=== PATIENT | female | born 1950 | race Caucasian/White ===

== ENCOUNTER 2020-07-27 11:58 | Inpatient (IN) | payer OTHER, SELFPAY ==
[~2020-07-27] VITALS: Ht 165.1 cm; Wt 74.8 kg
[2020-07-27 12:00] VITALS: BP_SYST 113
--- NOTE | 2020-07-27 12:00 | NUR ---
Placed in room 1 . Placed on cardiac catheterization technologist, blood pressure machine and pulse oximeter. To gown for exam. Side rails up.
--- NOTE | 2020-07-27 12:05 | NUR ---
Pt bib EMS from home with report of seizures. Per family pt has history of a brain tumor. V/S stable, pt is afebrile. Currently resting in bed, will continue to monitor.
--- NOTE | 2020-07-27 12:10 | NUR ---
ER Dr. Gardner at bedside examining patient.
--- NOTE | 2020-07-27 12:15 | NUR ---
# 16 FR Jacobson catheter with use of sterile technique. Immediate return of 50 cc pale yellow urine noted. Bedside drainage bag placed below level of bladder. Urine sample collected and sent to lab. Pt tolerated procedure well.
--- NOTE | 2020-07-27 12:20 | NUR ---
Nasal swab obtained to r/o Covid, sample sent to lab, pt tolerated well.
[2020-07-27] MEDS ORDERED: METO25TA6 PO (12:24)
[2020-07-27] MEDS ORDERED: TEMA15CA PO (12:24)
[2020-07-27] MEDS ORDERED: LIP20 PO (12:24)
[2020-07-27] MEDS ORDERED: TEMO5CAP PO (12:24)
[2020-07-27] MEDS ORDERED: DEC1 PO (12:24)
--- NOTE | 2020-07-27 12:25 | NUR ---
Med rec and belongings list completed
--- NOTE | 2020-07-27 12:27 | NUR ---
Patient transported to radiology via gurney, accompanied by staff.
[2020-07-27 12:36] LABS: BASOPHILS % (AUTO) 0.5 % (0.0-2.0); EOSINOPHILS % (AUTO) 0.3 % (0.0-4.0); HEMATOCRIT 36.3 % (36-48); HEMOGLOBIN 12.7 g/dL (12.0-16.0); LYMPHOCYTES # (AUTO) 0.7 K/uL (1.0-5.5); MEAN CORPUSCULAR HEMOGLOBIN 35 pg (27-31); MEAN CORPUSCULAR HGB CONC 35 % (32-36); MEAN CORPUSCULAR VOLUME 100 fL (79.0-98.0); MONOCYTES # (AUTO) 0.6 K/uL (0.0-1.0); NEUTROPHILS # (AUTO) 6.6 K/uL (1.8-7.7); NEUTROPHILS % (AUTO) 82.2 % (40.0-70.0); PLATELET COUNT (AUTO) 144 K/uL (130-430); RED BLOOD CELL COUNT(AUTO) 3.63 MIL/uL (4.2-6.2); RED CELL DISTRIBUTION WIDTH 13.5 % (9.0-15.0); WHITE BLOOD COUNT (AUTO) 8.1 K/uL (4.8-10.8)
[2020-07-27 12:44] LABS: BILIRUBIN,URINE NEGATIVE (NEGATIVE); CLARITY/URINE CLEAR (CLEAR); COLOR,URINE YELLOW (YELLOW); GLUCOSE,URINE NEGATIVE (NEGATIVE); KETONES,URINE NEGATIVE (NEGATIVE); LEUKOCYTE ESTERASE ,URINE TRACE (NEGATIVE); NITRITE, URINE NEGATIVE (NEGATIVE); PH,URINE 6.5 (5.0-8.0); PROTEIN URINE NEGATIVE (NEGATIVE); UROBILINOGEN,URINE 0.2 (0.2-1.0)
[2020-07-27 12:49] LABS: ANION GAP 10 (5-15); CALCIUM 8.7 mg/dL (8.4-11.0); CHLORIDE 104 mmol/L (98-107); CREATININE 0.75 mg/dL (0.55-1.30); GLUCOSE 147 mg/dL (70-99); SODIUM SERUM 144 mmol/L (136-145); UREA NITROGEN, BLOOD 15 mg/dL (8-21)
[2020-07-27 12:50] LABS: BLOOD, URINE TRACE (NEGATIVE)
[2020-07-27 12:55] LABS: ALANINE AMINOTRANSFERASE 27 U/L (12-78); ALBUMIN 3.2 g/dL (3.4-4.8); ALCOHOL, BLOOD < 3 mg/dL (<10); ASPARTATE AMINOTRANSFERASE 16 U/L (10-37); PROTHROMBIN TIME 10.4 SECS (9.5-12.5); TOTAL BILIRUBIN 0.9 mg/dL (0.0-1.0)
[2020-07-27 12:56] LABS: ACETAMINOPHEN < 1 ug/mL (1-30); POTASSIUM 1.9 mmol/L (3.5-5.1)
[2020-07-27 12:57] LABS: BACTERIA,URINE FEW /HPF (None Seen)
[2020-07-27] MEDS ORDERED: POTASSIUM CHLORIDE 40 MEQ in NS 250 ML IV ONE (13:00)
[2020-07-27] MEDS ORDERED: MAGNESIUM SULFATE 50 ML IV ONE (13:00)
[2020-07-27 13:10] LABS: BARBITURATE, URINE NEGATIVE (NEG <=200); BENZODIAZEPINE, URINE POSITIVE (NEG <=150); CANNABINOID, URINE NEGATIVE (NEG <=50); COCAINE, URINE NEGATIVE (NEG <=150); METHAMPHETAMINES SCREEN,URINE NEGATIVE (NEG <=500); URINE AMPHETAMINE NEGATIVE (NEG <=500); URINE METHADONE NEGATIVE (NEG <=200)
[2020-07-27 13:11] LABS: OPIATE, URINE NEGATIVE (NEG <=100); PHENCYCLIDINE SCREEN,URINE NEGATIVE (NEG <=25); UR TRICYCLIC ANTIDEPRESSANTS NEGATIVE (NEG <=300); URINE OXYCODONE SCREEN NEGATIVE (NEG <=100); URINE PROPOXYPHENE SCREEN NEGATIVE (NEG <=300)
[2020-07-27 13:12] LABS: URINE AMORPHOUS URATE 1+ /HPF (None Seen)
[2020-07-27] MEDS ORDERED: KCL 20 mEq in 100 mL (PREMIX) 0 ML IV ONE (13:22)
--- NOTE | 2020-07-27 13:22 | NUR ---
k-rider and Mag rider currently infusing per MD order.
--- NOTE | 2020-07-27 13:40 | NUR ---
Spoke with Breanna ( patient's daughter) who states patient never had seizures before, pt had a device placed 2 days ago, (optune for treatment of brain CA).
--- NOTE | 2020-07-27 13:44 | NUR ---
Lab at bedside for Potassium re-draw
[2020-07-27] MEDS ORDERED: levETIRAcetam 1,000 MG in NS 100 ML IV ONE (14:15)
--- NOTE | 2020-07-27 14:44 | NUR ---
Dr. Oneil speaking w/ the pt's daughter
[2020-07-27] MEDS ORDERED: levETIRAcetam 500 MG in NS 100 ML IV SCH (15:00)
[2020-07-27] MEDS ORDERED: LABETALOL 100 MG/ 20ML VIAL IVP ONE (15:00)
[2020-07-27] MEDS ORDERED: DEXAMETHASONE SOD PHOSPHATE 4 MG/ML VIAL INH ONE (15:00)
[2020-07-27] MEDS ORDERED: levETIRAcetam 500 MG in NS 100 ML IV ONE (16:00)
[2020-07-27] MEDS ORDERED: POTASSIUM CHLORIDE 60 MEQ in NS 500 ML IV SCH (17:00)
--- NOTE | 2020-07-27 17:20 | NUR ---
Patient will be admitted to care of Dr. Oneil. Admitted to ICU unit. Will go to room 5. Belongings list completed. Complete and up to date summary report printed. SBAR report to be given at bedside with opportunity for questions. IV sites intact and patent
--- NOTE | 2020-07-27 17:30 | NUR ---
ADMISSION NOTE RECEIVED PT FROM ER TO ICU 5, VIA ELICEO, PT AWAKE, WEAK, NON VERBAL, ON ROOM AIR, HEAD SHAVED, HX OF RADIATION/CHEMOTHERAPY, IV IN RIGHT WRIST, LEFT A/C IV WITH NS INFUSING, BETH CATHETER DRAINING LARGE AMOUNT OF URINE. ARMS SEEN BRUISED, RIGHT KNEE DRY SCAB.
[2020-07-27] MEDS: hydrALAZINE HCL 20 MG/ML VIAL IVP PRN (17:51)
[2020-07-27] MEDS: D5NS 1,000 ML IV SCH (17:54)
--- NOTE | 2020-07-27 17:55 | NUR ---
CALLED Shaista MONTELONGO AT [phone] LOCO AWARE OF CONSULT
--- NOTE | 2020-07-27 17:56 | NUR ---
CALLED DR. GARCIA WITH A CONSULT SPOKE WITH THE EXCHANGE
[2020-07-27 18:00] VITALS: BP_SYST 167; BP_SYST 180
--- NOTE | 2020-07-27 18:10 | NUR ---
ACTIVITY. HELPED PT TURNED TO HER SIDE, PT HAD A MASK ON, DRY-HEAVE NOTICED. IMMEDIATELY PLACED HEAD OF BED ELEVATED, TOOK PT'S MASK OFF, LARGE AMOUNT OF STICKY SECRETIONS ON THE MASK NOTED. ORAL HYGIENE PROVIDED. PAGED DR JOHNSON FOR NOTIFICATION.
--- NOTE | 2020-07-27 18:20 | NUR ---
. DR ESTRADA CALLED BACK, ON-CALL MD, REPORTED PT'S CONDITION, NAUSEA, HAD LARGE ORAL SECRETIONS, NO NEW ORDERS RECEIVED.
--- NOTE | 2020-07-27 18:21 | NUR ---
CONSULT. DR Shaista HUYNH, REPORT GIVEN ON PT'S CONDITION, WILL DO EEG TOMORROW.
--- NOTE | 2020-07-27 18:34 | NUR ---
PAGED DR. GARCIA [phone] SPOKE WITH TYE
--- NOTE | 2020-07-27 18:53 | NUR ---
[facility] [employer] DR. ESTRADA [phone] SPOKE TO CUATE
[2020-07-27 19:00] VITALS: BP_SYST 159
[2020-07-27] MEDS ORDERED: ONDANSETRON HCL 4 MG/2 ML VIAL IVP PRN (19:00)
[2020-07-27] MEDS ORDERED: DEXAMETHASONE SOD PHOSPHATE 4 MG/ML VIAL INH SCH (19:00)
[2020-07-27] MEDS ORDERED: METOCLOPRAMIDE HCL 10 MG/2 ML VIAL IVP PRN (19:00)
[2020-07-27] MEDS ORDERED: KCL 20 mEq in 100 mL (PREMIX) 300 ML IV ONE (19:05)
--- NOTE | 2020-07-27 19:30 | NUR ---
Opening Note Received report from AM nurse using SBAR approach.
--- NOTE | 2020-07-27 19:38 | NUR ---
MD Call back Dr. Gomez called back and updated doctor that the patient pulled out her murray and asked if we can get an order for restraints. New orders received.
[2020-07-27 20:00] VITALS: BP_SYST 158
[2020-07-27] MEDS: PANTOPRAZOLE SODIUM 40 MG/VIAL (PROTONIX) IVP SCH (20:54)
[2020-07-27 21:00] VITALS: BP_SYST 152
--- NOTE | 2020-07-27 21:00 | NUR ---
Family Daughter, Gregoria called, asking for updates. Provided updates for daughter.
--- NOTE | 2020-07-27 21:15 | NUR ---
Pulled out Murray Patient pulled out her murray. Assessed patient and there is no signs or symptoms of bleeding present.
--- NOTE | 2020-07-27 21:20 | NUR ---
Carlos ARCHER Called Dr. Gomez to update her on patient's status.
--- NOTE | 2020-07-27 21:21 | NUR ---
[facility] [employer] DR. ESTRADA [phone] SPOKE WITH KAILASH
--- NOTE | 2020-07-27 21:30 | NUR ---
BETH CATH: # 16 FR Beth catheter with cc bulb inserted with use of sterile technique. Bulb inflated with cc sterile water. Immediate return of urine noted. Bedside drainage bag placed below level of bladder. Pt tolerated procedure . Will monitor for signs or symptoms of irritation.
--- NOTE | 2020-07-27 21:38 | NUR ---
[facility] [employer] DR. ESTRADA [phone] SPOKE WITH JORGE SMALLWOOD
--- NOTE | 2020-07-27 21:45 | NUR ---
IV RE-INSERTION: IV site leaking. Restarted on left wrist 18ga . Successful after 1 attempts. Will observe for any signs of infiltration.
--- NOTE | 2020-07-27 22:20 | NUR ---
Skin tear Patient has a small skin tear on left arm. Took pictures and put it on the chart. Put oil emulsion on skin tear and secured it with a transparent dressing.
[2020-07-27] MEDS: levETIRAcetam 500 MG in NS 100 ML IV SCH (22:39)
[2020-07-28] VITALS (20 sets, daily range): BP systolic 150–197
[2020-07-28] MEDS ORDERED: DEXAMETHASONE SOD PHOSPHATE 4 MG/ML VIAL IVP ONE (02:30)
[2020-07-28] MEDS: DEXAMETHASONE SOD PHOSPHATE 4 MG/ML VIAL IV SCH ×4 (05:48→23:29)
--- NOTE | 2020-07-28 06:58 | NUR ---
Murray pulled out Patient was able to get out of her restraints and then pulled out her murray. Assessed patient and there is no sign or symptom of trauma. Will endorse to day shift RN.
--- NOTE | 2020-07-28 07:18 | NUR ---
Closing Note Endorsed report to AM nurse using SBAR approach.
--- NOTE | 2020-07-28 07:20 | NUR ---
Opening Note Received report from endorsing RN. Pt awake, confused, with incomprehensible speech, unable to follow commands or answer simple questions. Pt in no signs of pain or distress at this time. Padded side rails in place for seizure precautions.
[2020-07-28] MEDS: PANTOPRAZOLE SODIUM 40 MG/VIAL (PROTONIX) IVP SCH ×2 (08:17→20:14)
[2020-07-28] MEDS: D5NS 1,000 ML IV SCH ×2 (08:19→23:30)
--- NOTE | 2020-07-28 09:00 | NUR ---
Updated patient's daughter Aniya Chapman regarding patient.
[2020-07-28] MEDS: levETIRAcetam 500 MG in NS 100 ML IV SCH (09:27)
--- NOTE | 2020-07-28 09:57 | NUR ---
Nutrition Update Anjum Scale 14 noted. Pt admitted for brain tumor, hypokalemia, seizures. Diet: NPO BMI: 27.5 kg/m2 RD to follow per nutrition care standards.
--- NOTE | 2020-07-28 12:11 | NUR ---
Dr. Perdomo, in for Dr. Oneil, at bedside assessing patient.
[2020-07-28 12:49] LABS: BASOPHILS % (AUTO) 0.1 % (0.0-2.0); HEMOGLOBIN 13.5 g/dL (12.0-16.0); LYMPHOCYTES # (AUTO) 0.5 K/uL (1.0-5.5); LYMPHOCYTES % (AUTO) 3.6 % (20.5-51.5); MEAN CORPUSCULAR HEMOGLOBIN 34 pg (27-31); MEAN CORPUSCULAR HGB CONC 35 % (32-36); MEAN CORPUSCULAR VOLUME 99 fL (79.0-98.0); MONOCYTES # (AUTO) 0.4 K/uL (0.0-1.0); MONOCYTES % (AUTO) 3.1 % (1.7-9.3); NEUTROPHILS # (AUTO) 12.2 K/uL (1.8-7.7); NEUTROPHILS % (AUTO) 93.2 % (40.0-70.0); PLATELET COUNT (AUTO) 157 K/uL (130-430); RED BLOOD CELL COUNT(AUTO) 3.94 MIL/uL (4.2-6.2); RED CELL DISTRIBUTION WIDTH 14.2 % (9.0-15.0); WHITE BLOOD COUNT (AUTO) 13.1 K/uL (4.8-10.8)
[2020-07-28 13:56] LABS: ALANINE AMINOTRANSFERASE 25 U/L (12-78); ALBUMIN 3.2 g/dL (3.4-4.8); ANION GAP 11 (5-15); ASPARTATE AMINOTRANSFERASE 17 U/L (10-37); CALCIUM 8.9 mg/dL (8.4-11.0); CHLORIDE 109 mmol/L (98-107); CREATININE 0.73 mg/dL (0.55-1.30); GLUCOSE 157 mg/dL (70-99); PHOSPHORUS 1.9 mg/dL (2.7-4.5); SODIUM SERUM 144 mmol/L (136-145); UREA NITROGEN, BLOOD 11 mg/dL (8-21)
--- NOTE | 2020-07-28 14:00 | NUR ---
Updates Patient able to answer simple questions selectively. Also released restraint on left arm and provided education to patient regarding need for restraint. No other complaints at this time. Noted smear of BM, provided CHG bath and linen change. Tolerated well.
[2020-07-28 14:19] LABS: POTASSIUM 2.7 mmol/L (3.5-5.1)
[2020-07-28] MEDS ORDERED: POTASSIUM CHLORIDE 40 MEQ, LIDOCAINE JECT 2% PF 100 MG 50 MG in NS 250 ML IV ONE (14:45)
--- NOTE | 2020-07-28 14:45 | NUR ---
Notified Dr. Perdomo regarding patient's potassium levels. New orders made including KRider 40 mEq to be given.
--- NOTE | 2020-07-28 14:48 | NUR ---
HIGH ALERT NOTE: Called Dr. Perdomo back and identified within the medical roster to verify physician authenticity.
--- NOTE | 2020-07-28 15:17 | NUR ---
Dietitian Recommendations * Consider swallow bhargav REED RD Please refer to Nutrition Assessment for details. Addendum: 07/28/20 at [address] Amended: Links added.
--- NOTE | 2020-07-28 15:20 | NUR ---
EEG being done at bedside
--- NOTE | 2020-07-28 15:30 | NUR ---
Dr. Villa rounding on patient. Aware of patient's potassium levels and plan of care.
--- NOTE | 2020-07-28 16:00 | NUR ---
Pt noted with large void, performed sayda care and linen change.
[2020-07-28] MEDS: hydrALAZINE HCL 20 MG/ML VIAL IVP PRN (17:50)
--- NOTE | 2020-07-28 18:29 | NUR ---
Closing Pt resting in bed. Able to answer simple questions but still has some incomprehensible speech. IV sites intact, patent, no infiltration noted. Left hand with wrist restraint, pulse present, no skin breakdown noted. Will endorse plan of care to weapons and tactics instructor RN with bedside round.
--- NOTE | 2020-07-28 19:30 | NUR ---
INITIAL NOTES PATIENT IS STABLE AND LAYING IN BED. NO S/S OF RESPIRATORY DISTRESS NOTED. CALL LIGHT IN REACH. PATIENT UNSUCCESSFULLY DEMONSTRATES USAGE OF CALL LIGHT. WILL CONTINUE TO MONITOR. BED IS LOCKED AND AT THE LOWEST POSITION. FALL, SAFETY, ASPIRATION, SEIZURE, RESTRAINTS, AND RESPIRATORY PRECAUTIONS WILL BE IN PLACE THROUGHOUT THE SHIFT. PLAN OF CARE IS DISCUSSED WITH PATIENT.
[2020-07-28] MEDS: ENALAPRILAT DIHYDRATE 1.25 MG/ML VIAL IVP PRN (20:10)
[2020-07-28] MEDS: levETIRAcetam 500 MG IV PREMIX 100 ML IV SCH (20:14)
[2020-07-28 23:02] LABS: ANION GAP 10 (5-15); CALCIUM 8.8 mg/dL (8.4-11.0); CHLORIDE 112 mmol/L (98-107); CREATININE 0.62 mg/dL (0.55-1.30); GLUCOSE 156 mg/dL (70-99); SODIUM SERUM 145 mmol/L (136-145); UREA NITROGEN, BLOOD 15 mg/dL (8-21)
[2020-07-28] MEDS ORDERED: KCL 20 mEq in 100 mL (PREMIX) 100 ML IV ONE (23:30)
--- NOTE | 2020-07-28 23:30 | NUR ---
POTASSIUM 3.0 PER MD ADDITIONAL NOTE ORDER 40 MEQ POTASSIUM IF POTASSIUM IS LESS THAN 3.5. POTASSIUM IS 3.0 2X 20 MEQ POTASSIUM ORDERED DUE TO AVAILABILITY.
[2020-07-29] VITALS (24 sets, daily range): BP systolic 140–200
[2020-07-29] MEDS: hydrALAZINE HCL 20 MG/ML VIAL IVP PRN ×2 (01:07→08:36)
[2020-07-29] MEDS: DEXAMETHASONE SOD PHOSPHATE 4 MG/ML VIAL IV SCH ×4 (05:10→23:31)
[2020-07-29] MEDS: ENALAPRILAT DIHYDRATE 1.25 MG/ML VIAL IVP PRN ×3 (05:10→20:57)
[2020-07-29 06:56] LABS: BASOPHILS % (AUTO) 0.1 % (0.0-2.0); HEMATOCRIT 35.6 % (36-48); HEMOGLOBIN 12.3 g/dL (12.0-16.0); LYMPHOCYTES # (AUTO) 0.3 K/uL (1.0-5.5); LYMPHOCYTES % (AUTO) 2.5 % (20.5-51.5); MEAN CORPUSCULAR HEMOGLOBIN 35 pg (27-31); MEAN CORPUSCULAR HGB CONC 35 % (32-36); MEAN CORPUSCULAR VOLUME 100 fL (79.0-98.0); MONOCYTES # (AUTO) 0.6 K/uL (0.0-1.0); MONOCYTES % (AUTO) 4.5 % (1.7-9.3); NEUTROPHILS % (AUTO) 92.9 % (40.0-70.0); PLATELET COUNT (AUTO) 144 K/uL (130-430); RED BLOOD CELL COUNT(AUTO) 3.54 MIL/uL (4.2-6.2); RED CELL DISTRIBUTION WIDTH 14.3 % (9.0-15.0); WHITE BLOOD COUNT (AUTO) 12.9 K/uL (4.8-10.8)
[2020-07-29 07:06] LABS: ALANINE AMINOTRANSFERASE 26 U/L (12-78); ANION GAP 9 (5-15); ASPARTATE AMINOTRANSFERASE 22 U/L (10-37); CALCIUM 8.9 mg/dL (8.4-11.0); CHLORIDE 113 mmol/L (98-107); CREATININE 0.58 mg/dL (0.55-1.30); GLUCOSE 154 mg/dL (70-99); PHOSPHORUS 1.8 mg/dL (2.7-4.5); POTASSIUM 3.1 mmol/L (3.5-5.1); SODIUM SERUM 146 mmol/L (136-145); TOTAL BILIRUBIN 0.7 mg/dL (0.0-1.0); UREA NITROGEN, BLOOD 14 mg/dL (8-21)
--- NOTE | 2020-07-29 07:24 | NUR ---
CLOSING NOTE SBAR REPORT ENDORSED TO AM NURSE.
--- NOTE | 2020-07-29 07:30 | NUR ---
Received pt to assume care. Pt agitated and trying to climb out of bed. Left wrist restraint in place. Pt throwing padded side rail onto the floor and kicking left leg over the side rail. ST on monitor, rate 115. No resp distress noted. Lungs clear. HOB up. No seizure activity noted. Pt's speech is difficult to understand and garbled. IVF infusing at 60 cc/hr. Pt has bruising to both arms. Swallow eval pending and patient remains NPO for now.
[2020-07-29] MEDS: levETIRAcetam 500 MG IV PREMIX 100 ML IV SCH ×2 (08:35→20:58)
[2020-07-29] MEDS: PANTOPRAZOLE SODIUM 40 MG/VIAL (PROTONIX) IVP SCH ×2 (08:35→20:56)
--- NOTE | 2020-07-29 08:36 | NUR ---
BP elevated 180/122 and HR 120. Medicated with Apresoline IVP.
--- NOTE | 2020-07-29 08:58 | NUR ---
ERNA DISLA. LEFT A VOICE MESSAGE FOR GREGORIO DIALED [phone]
--- NOTE | 2020-07-29 10:10 | NUR ---
Dr. Perdomo in to see pt. HR 130's and EKG ordered. Consult called for who is aware and in the unit. Both MD's aware of elevated BP and medications given.
[2020-07-29] MEDS ORDERED: K PHOS 30 MM in NS 250 ML IV ONE (10:30)
--- NOTE | 2020-07-29 10:32 | NUR ---
Dr. Gill in to see pt.
[2020-07-29] MEDS ORDERED: LABETALOL 100 MG/ 20ML VIAL IVP SCH (10:45)
--- NOTE | 2020-07-29 10:48 | NUR ---
Dr. Gill speaks to pts daughter Breanna on the phone.
--- NOTE | 2020-07-29 12:18 | NUR ---
BP still elevated. HR 128. Medicated with vastoec 1.25mg IVP.
[2020-07-29] MEDS: LABETALOL 100 MG/ 20ML VIAL IVP PRN ×3 (12:47→23:29)
[2020-07-29] MEDS: D5NS 1,000 ML IV SCH (12:51)
--- NOTE | 2020-07-29 13:30 | NUR ---
Have tried to reach Dr. Harrison to a transfer to [facility]. No call back yet. Addendum: 07/29/20 at 1443 by Flavia Hung RN Above entry made on the wrong patient.
--- NOTE | 2020-07-29 13:48 | NUR ---
Pts HR 100 and BP 140/96 now after labetolol given. Pt remains restless and kicks left leg over rails and seizure pad on to floor. Pt able to answer questions which seems mostly appropriate. No seizure activity.
--- NOTE | 2020-07-29 20:00 | NUR ---
Pt report received. Pt alert and confuserd, fidgiting with bed sheet. Pt reassured and is able to rest. Respirations even and non-labored. Soft wrist restraint secure to left wrist. D5NS infusing at 60 mL/hr to patent and secure PIV Right wrist. PIV to LFA secure, no s/s infiltration. Bilat SCDs in place.
--- NOTE | 2020-07-29 20:56 | NUR ---
Vasotec 2.5 mg given IVP for B/P 165/90.
[2020-07-29] MEDS ORDERED: COMMUNICATION ORDER XX ONE (21:00)
--- NOTE | 2020-07-29 23:00 | NUR ---
Labetolol 20 mg given IVP for B/P 164/92. Pt resting quietly.
[2020-07-30] VITALS (7 sets, daily range): BP systolic 146–164
--- NOTE | 2020-07-30 | NUR ---
Resting zen, KEYUR. No seizure activity noted. Seizure pads in place.
[2020-07-30] MEDS: hydrALAZINE HCL 20 MG/ML VIAL IVP PRN (01:14)
--- NOTE | 2020-07-30 01:15 | NUR ---
Apresoline 10 mg given IVP fo4r B/P 163/95. Resting quietly, NAD.
--- NOTE | 2020-07-30 02:00 | NUR ---
Pt transferred to Tele Rm 113A via bed and classroom monitor. VSS, NAD, no seizure activity this shift. Pt report given to receiving RN.
--- NOTE | 2020-07-30 02:30 | NUR ---
TRANSFER NOTES; took over care from nurse Trent, pt. transferred from ICU with DX of new onset of seizures on admission and hx brain tumor and hypokalemia. pt. awake, able to answer simple questions, reoriented to place and time. on left wrist restraint when received. placed on equipment monitor phototypesetting and shows sinus rhythm. IV infusing via rt. wrist IV with D5 NS @ 60 cc.hr. , noted rt. hand swollen, both arms with bruising. noted rt. sided weakness. pt. incontinent of both bowel and bladder, had small amts. of stool. noted rt. knee skin scab, skin tear on left forearm and wrapped with dressing. on fall risk and seizure precautions. kept NPO for swallow eval today. kept warm and comfortable. VS checked. sequentials on.
--- NOTE | 2020-07-30 04:00 | NUR ---
NOTES: rt. hand IV site pretty swollen and left forearm, removed by nurse Trent and restarted another site on left antecubital # 18 and resume IVF. left wrist restraint intact to prevent pulling out tubing and cables. condition observed. on seizure precaution.
--- NOTE | 2020-07-30 06:00 | NUR ---
NOTES; pt. incontinent, changed pad and repositioned and turn to sides. left wrist restraint on.
[2020-07-30 06:21] LABS: HEMATOCRIT 35.5 % (36-48); HEMOGLOBIN 12.1 g/dL (12.0-16.0); LYMPHOCYTES # (AUTO) 0.3 K/uL (1.0-5.5); LYMPHOCYTES % (AUTO) 2.2 % (20.5-51.5); MEAN CORPUSCULAR HEMOGLOBIN 34 pg (27-31); MEAN CORPUSCULAR HGB CONC 34 % (32-36); MEAN CORPUSCULAR VOLUME 100 fL (79.0-98.0); MONOCYTES # (AUTO) 0.6 K/uL (0.0-1.0); MONOCYTES % (AUTO) 4.3 % (1.7-9.3); NEUTROPHILS # (AUTO) 13.8 K/uL (1.8-7.7); NEUTROPHILS % (AUTO) 93.5 % (40.0-70.0); PLATELET COUNT (AUTO) 141 K/uL (130-430); RED BLOOD CELL COUNT(AUTO) 3.54 MIL/uL (4.2-6.2); RED CELL DISTRIBUTION WIDTH 14.5 % (9.0-15.0); WHITE BLOOD COUNT (AUTO) 14.7 K/uL (4.8-10.8)
--- NOTE | 2020-07-30 06:40 | NUR ---
CLOSING NOTES; EKG and blood draw done. pt. went back to sleep. IVF continuous. on fall risk and seizure precautions observed. awake but still confused. continue left wrist restraint. for further care and assistance. frequent rounds, pt. room close to nurses station. will endorse to incoming shift.
[2020-07-30 06:44] LABS: ALANINE AMINOTRANSFERASE 27 U/L (12-78); ANION GAP 11 (5-15); ASPARTATE AMINOTRANSFERASE 25 U/L (10-37); CALCIUM 8.5 mg/dL (8.4-11.0); CHLORIDE 111 mmol/L (98-107); CREATININE 0.61 mg/dL (0.55-1.30); GLUCOSE 158 mg/dL (70-99); PHOSPHORUS 3.1 mg/dL (2.7-4.5); SODIUM SERUM 147 mmol/L (136-145); TOTAL BILIRUBIN 0.9 mg/dL (0.0-1.0); UREA NITROGEN, BLOOD 17 mg/dL (8-21)
[2020-07-30 08:03] LABS: POTASSIUM 2.9 mmol/L (3.5-5.1)
[2020-07-30] MEDS: D5NS 1,000 ML IV SCH ×2 (08:34→20:24)
[2020-07-30] MEDS: PANTOPRAZOLE SODIUM 40 MG/VIAL (PROTONIX) IVP SCH ×2 (08:34→20:23)
[2020-07-30] MEDS: levETIRAcetam 500 MG IV PREMIX 100 ML IV SCH ×2 (08:36→20:23)
[2020-07-30] MEDS: LABETALOL 100 MG/ 20ML VIAL IVP PRN ×2 (09:29→20:45)
[2020-07-30] MEDS: POTASSIUM CHLORIDE 40 MEQ in 0.45% NS 250 ML IV SCH ×2 (09:46→18:01)
--- NOTE | 2020-07-30 10:55 | NUR ---
S.T. SWALLOW EVAL SWALLOW EVAL COMPLETED. PT PRESENTS W/ GENERALLY FUNCTIONAL OROPHARYNGEAL SWALLOW W/ TIMELY BOLUS MANIPULATION AND TIMELY SWALLOW. NO S/S OF ASPIRATION. REC: MECH SOFT CHOPPED DIET. THIN LIQUIDS OK. NURSE LUCILA NOTIFIED.
[2020-07-30] MEDS: DEXAMETHASONE SOD PHOSPHATE 4 MG/ML VIAL IV SCH ×3 (12:00→18:02)
--- NOTE | 2020-07-30 12:49 | NUR ---
Nutrition F/U Admitting Diagnosis: Brain tumor, hypokalemia, seizures Medical History Comment: PMH: glioblastoma multiforme, HTN, HLD, craniotomy x2 days Pt also found w/ new onset seizures per physician notes SARS-CoV-2 Ag (Rapid) Negative 07/27 Subjective Information: Pt seen in bed, appeared confused/disoriented. RD s/w RN earlier who reported that pt is a/w swallow eval. ST saw pt today, before noon, pt passed that swallow eval and ST rec Mechanical soft diet. Pt has been NPO since admission (3 days) and w/ increased nutrient needs for chronic illness. Pt may benefit from adding ONS to optimize nutrient intake. Current Diet Order/Nutrition Support: Mechanical soft diet (per ST rec, ordered for lunch today) Pertinent Medications: decadron, Protonix, reglan, zofran Pertinent Labs 07/30 Na 147H, K 2.9L, BG 158H, BUN 17WNL, CRE 0.61WNL Skin Integrity Comment: Anjum scale: 14; no PIs per RN report Current % PO Was NPO, diet now advanced to Mechanical soft Estimated Energy Expenditure (kcals/day) 6435-8676 kcal/day (MSJ x 1.2-1.5 CBW for CA) Estimated Protein Required (g/day) 90-113 gm/day (1.2-1.5 gm/kg CBW for CA) Estimated Fluid Required (l/day) 2.3-2.6 L/day (30-35 ml/kg CBW for maintenance) Problem/Etiology/Signs/Symptoms Increased nutritional needs related to metabolic demands as evidenced by estimated nutritional requirements for CA. (*ongoing) Possible chewing/swallowing difficulty related to impaired cognition as evidenced by confusion/disorientation and new onset seizures. (*ongoing) Expected Outcomes/Goals - Monitor appetite, and PO intakes w/ goal of pt meeting at least 50% of estimated nutritional needs, labs trending WNL, normal GI function, and skin integrity/wt maintenance Dietitian Recommendations * Continue Mechanical soft diet per ST rec. * Recommend: adding Ensure Enlive TID. * Consider appetite stimulant if PO is poor. Follow Up High Risk: F/U in 2-3days
--- NOTE | 2020-07-30 12:56 | NUR ---
Dietitian Recommendations * Continue Mechanical soft diet per ST rec. * Recommend: adding Ensure Enlive TID. * Consider appetite stimulant if PO is poor. Please see Nutrition F/U note for details. SANNA, RD
--- NOTE | 2020-07-30 18:30 | NUR ---
closing notes still with perids of confusion. ivf infusing well on the r ac. no infiltration oted. bed to the lowest positon and side rails up and locked. pt close to the nurses station.
[2020-07-31] MEDS: DEXAMETHASONE SOD PHOSPHATE 4 MG/ML VIAL IV SCH ×4 (00:21→17:35)
[2020-07-31 00:28] VITALS: BP_SYST 149
[2020-07-31 05:00] VITALS: BP_SYST 166
[2020-07-31] MEDS: hydrALAZINE HCL 20 MG/ML VIAL IVP PRN ×2 (05:18→13:33)
--- NOTE | 2020-07-31 06:58 | NUR ---
CLOSING NOTES Patient resting in bed, eyes closed, breathing evenly and nonlabored on room air. IVF running on right AC 20g, patient tolerating it well. No s/s of infection/infiltration noted at this time. Patient continues to be on left wrist restraint due to attempting to pull out IV line. Patient's BP was 166/95 HR 76 at 0500, hydralazine was given. BP at 0620 went down to 150/88 HR 89. Hygiene care was done throughout the shift. Wound care was done. Spoke with dtroxi Kinney last night at 2320, daughter spoke with another Neurologist and he recommended that decadron will be given at 12mg, she said that she spoke with Dr. Quintero and that he said he will increase the dose, but patient's current dose is 4mg. Dtr wants decadron to be increased and given to patient first before MRI procedure is done. Will notify/endorse to morning shift RN. No s/s of distress at this time, no other needs at this time. Fall/safety/seizure/aspiration precautions, will endorse care to morning shift RN.
--- NOTE | 2020-07-31 07:15 | NUR ---
OPENING NOTE RECEIVED SBAR FROM NIGHT RN, PATIENT IN BED, RESPIRATIONS EVEN NON LABORED, BED IN LOW AND LOCKED POSITION, CALL LIGHT WITHIN REACH, LEFT WRIST RESTRAINT ON, NO SIGNS OF SKIN BREAK DOWN, CAPILLARY REFILL LESS THAN 3 SECONDS, SDC;S ON BILATERAL LEGS,
[2020-07-31 08:00] VITALS: BP_SYST 160
--- NOTE | 2020-07-31 08:00 | NUR ---
NURSE NOTE OBTAINED VS, PATIENT IN BED, RESPIRATIONS EVEN NON LABORED, BED IN LOW AND LOCKED POSITON
--- NOTE | 2020-07-31 08:45 | NUR ---
NURSE NOTE ADMINISTERED MORNING MEDICATIONS, REPOSITIONED PATIENT, BED IN LOW AND LOCKED POSITION, CALL LIGHT WITHIN REACH, BED ALARM ON
[2020-07-31] MEDS: levETIRAcetam 500 MG IV PREMIX 100 ML IV SCH ×2 (08:54→21:18)
[2020-07-31] MEDS: PANTOPRAZOLE SODIUM 40 MG/VIAL (PROTONIX) IVP SCH ×2 (08:54→21:18)
--- NOTE | 2020-07-31 09:06 | NUR ---
MD ROUNDS DR WOODARD BEDSIDE EXAMINING PATIENT
--- NOTE | 2020-07-31 09:15 | NUR ---
ROUNDS DR JOHNSON BEDSIDE EXAMINING PATIENT
[2020-07-31] MEDS ORDERED: POTASSIUM CHLORIDE 40 MEQ in NS 250 ML IV ONE (10:00)
[2020-07-31 10:12] LABS: ANION GAP 8 (5-15); CALCIUM 8.3 mg/dL (8.4-11.0); CHLORIDE 109 mmol/L (98-107); CREATININE 0.61 mg/dL (0.55-1.30); GLUCOSE 172 mg/dL (70-99); POTASSIUM 3.1 mmol/L (3.5-5.1); SODIUM SERUM 143 mmol/L (136-145); UREA NITROGEN, BLOOD 22 mg/dL (8-21)
--- NOTE | 2020-07-31 11:00 | NUR ---
NURSE NOTE PATIENT INCONTINENT OF BLADDER, PROVIDED SANGITA CARE, CHANGED LINENS, REPOSITIONED PATIENT, BED IN LOW AND LOCKED POSITION, CALL LIGHT WITHIN REACH
[2020-07-31 12:00] VITALS: BP_SYST 164
--- NOTE | 2020-07-31 13:15 | NUR ---
INCREASED BP ELEVATED BP, PATIENT DENIES ANY PAIN OR DISCOMFORT, ADMINISTERED MEDICATION
[2020-07-31] MEDS ORDERED: POTASSIUM CHLORIDE 40 MEQ in NS 250 ML IV PRN (14:00)
--- NOTE | 2020-07-31 15:30 | NUR ---
NURSE NOTE PATIENT LEFT FOR MRI
[2020-07-31] MEDS ORDERED: GADOBENATE DIMEGLUMINE 529 MG/ML, 15 ML VIAL IV ONE (15:31)
--- NOTE | 2020-07-31 16:30 | NUR ---
NURSE NOTE PATIENT RETURNED FROM MRI, REATTACHED IVF'S AND TELE MONITOR, PATIENT DENIES ANY PAIN OR DISCOMFORT
[2020-07-31 16:31] VITALS: BP_SYST 147
--- NOTE | 2020-07-31 16:45 | NUR ---
NURSE NOTE PAGED DR LOCO REGARDING RESULTS OF MRI
--- NOTE | 2020-07-31 17:27 | NUR ---
NURSE NOTE INFORMED DR LOCO OF PATIENTS MRI RESULTS, DR ON THE WAY TO SEE THE PATIENT
[2020-07-31] MEDS: D5NS 1,000 ML IV SCH (18:53)
--- NOTE | 2020-07-31 19:15 | NUR ---
CLOSING NOTE PROVIDED BEDSIDE SBAR TO NIGHT RN, PATIENT IN BED, RESPIRATIONS EVEN, NON LABORED, BED IN LOW AND LOCKED POSITION, CALL LIGHT WITHIN REACH, BED ALARM ON, IVF'S RUNNING ORDERED, RESTRAINT TO LEFT WRIST IN PLACE, NO SIGNS OF SKIN BREAK DOWN, CAPILLARY REFILL IS LESS THAN 3 SECONDS, ENDORSED CARE TO NIGHT RN
[2020-07-31 20:05] VITALS: BP_SYST 139
[2020-08-01 01:00] VITALS: BP_SYST 168
[2020-08-01] MEDS: DEXAMETHASONE SOD PHOSPHATE 4 MG/ML VIAL IV SCH ×3 (01:00→12:28)
[2020-08-01] MEDS: hydrALAZINE HCL 20 MG/ML VIAL IVP PRN ×2 (01:10→11:28)
[2020-08-01 04:02] VITALS: BP_SYST 148
--- NOTE | 2020-08-01 07:42 | NUR ---
Opening Note received bedside SBAR report from night nurse RN, patient sitting up in bed eating breakfast with assistance from RESTAURANT EXPEDITOR, tolerating well, no acute distress noted, respirations even and unlabored on room air, side rails padded, room close to nurses station, educated patient on use of call light and asked to call for assistance, call light in reach, bed in low and locked position, bed alarm on.
[2020-08-01] MEDS: levETIRAcetam 500 MG IV PREMIX 100 ML IV SCH (09:04)
[2020-08-01] MEDS: PANTOPRAZOLE SODIUM 40 MG/VIAL (PROTONIX) IVP SCH (09:04)
--- NOTE | 2020-08-01 09:10 | NUR ---
Physician Rounds Dr. Oneil at bedside speaking with patient.
[2020-08-01 09:20] VITALS: BP_SYST 164
[2020-08-01] MEDS: ENALAPRILAT DIHYDRATE 1.25 MG/ML VIAL IVP PRN (09:20)
[2020-08-01] MEDS ORDERED: LEVE500T53 PO (10:05)
--- NOTE | 2020-08-01 10:23 | NUR ---
Spoke with Physician spoke with Dr. Oneil, informed him that orders for d/c home were received, informed him of positive urine culture for gram negative bacilli, received one time dose for medication to be given before discharge, verified with read back.
[2020-08-01 10:24] LABS: ANION GAP 10 (5-15); CHLORIDE 106 mmol/L (98-107); CREATININE 0.63 mg/dL (0.55-1.30); GLUCOSE 160 mg/dL (70-99); SODIUM SERUM 142 mmol/L (136-145); UREA NITROGEN, BLOOD 15 mg/dL (8-21)
[2020-08-01 10:25] LABS: CALCIUM 8.2 mg/dL (8.4-11.0)
[2020-08-01 10:26] LABS: POTASSIUM 2.8 mmol/L (3.5-5.1)
--- NOTE | 2020-08-01 10:29 | NUR ---
Critical Lab informed Dr. Oneil of critical lab potassium 2.8, new medication orders received, verified with read back, per Dr. Oneil patient can be discharged home after both doses of potassium replacement have been given, verified with read back.
[2020-08-01] MEDS ORDERED: POTASSIUM CHLORIDE 20 MEQ TAB.PRT.SR PO ONE ×2 (10:30→12:30)
[2020-08-01] MEDS ORDERED: levoFLOXacin 500 MG TABLET PO ONE (10:30)
--- NOTE | 2020-08-01 10:30 | NUR ---
HIGH ALERT NOTE: Dr. Oneil at nurses station, identified within the medical roster to verify physician authenticity.
--- NOTE | 2020-08-01 10:48 | NUR ---
Spoke with patients daughter/registered nurse hh case manager spoke with patients daughter Gregoria, she is aware of orders for discharge home, per Gregoria registered nurse hh case manager Gi is arranging for transportation, spoke with Gi from HCP, bora Angelo transportation has been arranged with [facility] for pickup at 1300.
[2020-08-01] MEDS: D5NS 1,000 ML IV SCH (10:54)
[2020-08-01 11:39] VITALS: BP_SYST 148
--- NOTE | 2020-08-01 12:00 | NUR ---
Wound Care educated patient on purpose and procedure for wound care, patient verbalized understanding, wound care completed, patient tolerated well, patient denies any pain during or after wound care, see MST shift assessment for wound care, photographs taken and placed in chart for discharge home today.
[2020-08-01 12:35] VITALS: BP_SYST 148
--- NOTE | 2020-08-01 12:36 | NUR ---
RN Rounds patient has been assisted to dress for discharge home by MUSIC EDUCATOR, patient was offered lunch tray, patient refusing lunch tray, patient states that she will eat when she gets home.
--- NOTE | 2020-08-01 12:42 | NUR ---
Spoke with patients daughter spoke with patients daughter Gregoria, per Gregoria patient has not yet received a flu vaccine at this time, she would not like her to receive the flu vaccine and will follow up with her primary care provider, educated Gregoria on discharge packet and instructions, Gregoria verbalized understanding, allowed time for questions, no further questions.
--- NOTE | 2020-08-01 13:01 | NUR ---
Discharge provided patient with discharge packet and instructions, IV catheter removed, catheter intact, no bleeding, tele monitor removed, respirations even and unlabored on room air, patient denies any pain, no acute distress noted, dressing to left forearm clean, dry, and intact, report given to [facility] ambulance for transfer, all belongings sent with patient, patient transferred to home via gurney by [facility] ambulance.
[2020-08-01] MEDS ORDERED: LEVO500T89 PO (14:00)
--- NOTE | 2020-08-07 13:31 | NUR ---
Discharge Follow Up Call: [facility] [employer] DR[employer] phoned pt and spoke with dtr Gregoria @[phone]. Per Gregoria, pt is "okay" and "weak but eating well". Per Gregoria, pt was seen for assessment with Evan Avalos on 08/05 and is yet to hear from them again. Pt has not made an appointment with PCP but will contact. Per Gregoria, they do not have questions/concerns about the discharge. [facility] [employer] provided family with [facility]CP phone number. No further SS call needed.
[2020-09-07] MEDS ORDERED: LEVE500T9 PO (19:02)
[2020-09-07] MEDS ORDERED: DEC1 PO (19:02)
[2020-09-07] MEDS ORDERED: TEMA15CA5 PO (19:02)
[2020-09-07] MEDS ORDERED: TEMO5CAP PO (19:02)
[2020-09-07] MEDS ORDERED: METO25TA6 PO (19:02)
[2020-09-07] MEDS ORDERED: LIP20 PO (19:02)
[2020-09-11] MEDS ORDERED: LEVE1000 PO (07:44)
[2020-09-11] MEDS ORDERED: DEC1 PO (07:44)
[2020-09-11] MEDS ORDERED: POTA20TA83 PO (12:20)
== END 2020-08-01 13:01 | disposition home or self-care (01) | DRG 100 ==
LOC: SED 11:58 → STU 14:53 → SIC 17:20 → STU 07-30 01:25
PROVIDERS: ADMIT Internal Medicine Hospice and Palliative Medicine; ATTEND Internal Medicine Hospice and Palliative Medicine
DX: G40.901 Epilepsy, unspecified, not intractable, with status epilepticus (principal); G93.6 Cerebral edema; G93.41 Metabolic encephalopathy; C71.9 Malignant neoplasm of brain, unspecified; G81.91 Hemiplegia, unspecified affecting right dominant side; E87.6 Hypokalemia; I16.0 Hypertensive urgency; E83.39 Other disorders of phosphorus metabolism; Z20.828 Contact with and (suspected) exposure to other viral communicable diseases; E78.5 Hyperlipidemia, unspecified; I10 Essential (primary) hypertension; R13.10 Dysphagia, unspecified; Z92.3 Personal history of irradiation; Z92.21 Personal history of antineoplastic chemotherapy
CPT/HCPCS: 36415; 70450-TC; 70553; 71045; 80048; 80053; 80307; 81000-TC; 83735-TC; 84100-TC; 84132-TC; 84484; 85025; 85610-TC; 85730-TC; 87081; 87086; 92610-GN; 93005; 95816; 96365; 96367; 96368; 96375; 99291; A9577; C9113; G0378; G0480; G0481; G0482; J0360; J1100; J1953; J3475; J3480; J3490; J7030; J7040; J7042; J7050